=== PATIENT | female | born 1960 | race Caucasian/White ===

== ENCOUNTER → 2017-02-09 | Outpatient (CLI) | payer BC ==
[2017-02-09 06:19] LABS: BASO % 0.5 % (0.0-1.0); EOS # 0.1 K/mm3 (0.0-0.50); EOS % 2.3 % (0.0-3.0); LARGE UNSTAINED CELL # 0.1 K/mm3 (0.0-0.4); LARGE UNSTAINED CELL % 1.9 % (0.0-4.0); LYMPH # 1.7 K/mm3 (1.5-4.5); LYMPH % 28.7 % (24.0-44.0); MEAN CORPUSCULAR VOLUME 90.9 fl (80.0-96.0); MONO # 0.3 K/mm3 (0.0-0.8); NEUTROPHILS # 3.6 K/mm3 (1.8-7.7); NEUTROPHILS % 61.6 % (36.0-66.0); PLATELET COUNT, AUTOMATED 154 k/mm3 (150-450); RED CELL DISTRIBUTION WIDTH 12.8 % (11.5-14.5); WHITE BLOOD COUNT 5.9 K/mm3 (4.0-10.0)
[2017-02-09 06:56] LABS: ALBUMIN 3.6 GM/DL (3.2-5.2); ALBUMIN/GLOBULIN RATIO 0.97 (1.00-1.93); ALKALINE PHOSPHATASE 132 U/L (45-117); ALT/SGPT 21 U/L (12-78); ANION GAP 6 MEQ/L (8-16); AST/SGOT 18 U/L (15-37); BILIRUBIN,TOTAL 0.6 MG/DL (0.2-1.0); BLOOD UREA NITROGEN 18 MG/DL (7-18); CALCIUM LEVEL 9.1 MG/DL (8.5-10.1); CARBON DIOXIDE LEVEL 27 MEQ/L (21-32); CHLORIDE LEVEL 108 MEQ/L (98-107); CHOLESTEROL LEVEL 223 MG/DL (<200); CREATININE FOR GFR 0.83 MG/DL (0.55-1.02); FREE T4 1.07 NG/DL (0.76-1.46); GLOMERULAR FILTRATION RATE > 60.0 (>51); GLUCOSE, FASTING 87 MG/DL (70-105); POTASSIUM SERUM 4.2 MEQ/L (3.5-5.1); SODIUM LEVEL 141 MEQ/L (136-145); TOTAL PROTEIN 7.3 GM/DL (6.4-8.2); TRIGLYCERIDES LEVEL 99 MG/DL (<150)
== END ==
LOC: M LAB 05:48
PROVIDERS: ATTEND Family Medicine
DX: Z13.29 Encounter for screening for other suspected endocrine disorder (principal); Z13.0 Encounter for screening for diseases of the blood and blood-forming organs and certain disorders involving the immune mechanism; Z13.220 Encounter for screening for lipoid disorders

== ENCOUNTER → 2017-02-21 | Outpatient (CLI) | payer BC ==
--- NOTE | 2017-02-21 10:04 | REPMRS ---
Patient History The patient states she has not had a clinical breast exam in over a year. No known family history of cancer. Benign stereotactic core biopsy of the left breast, 2008. Digital Woman Screen Mammo: February 21, 2017 - Exam #: [id number] Bilateral CC and MLO view(s) were taken. Technologist: Addie Wellington, Technologist Prior study comparison: November 14, 2015, digital woman screen mammo performed at [facility]. October 23, 2014, digital woman screen mammo performed at [facility] to [facility]. FINDINGS: The breast tissue is heterogeneously dense. This may lower the sensitivity of mammography. There has been no change in the appearance of the mammogram from the prior studies. There is a moderate amount of residual fibroglandular tissue which is fairly symmetric. There is no interval development of dominant mass, areas of architectural distortion, or clustered microcalcification typical of malignancy. ASSESSMENT: BI-RADS/ACR category 1 mammogram. Negative. Recommendation Routine screening mammogram in 1 year (for women over age 40). This mammogram was interpreted with the aid of an FDA-approved computer-aided dectection system. Electronically Signed By: Pete Epperson MD 02/21/17 [id number]
== END ==
LOC: M WHC 08:29
PROVIDERS: ATTEND Family Medicine
DX: Z12.31 Encounter for screening mammogram for malignant neoplasm of breast (principal)

== ENCOUNTER 2018-02-04 12:14 | Emergency (ER) | payer BC ==
[2018-02-04] MEDS: IBUPROFEN 600 MG TAB PO (13:40)
== END 2018-02-04 13:49 | disposition home or self-care (01) ==
LOC: M ED 12:14
DX: S90.02XA Contusion of left ankle, initial encounter (principal); S90.512A Abrasion, left ankle, initial encounter; V23.5XXA Motorcycle passenger injured in collision with car, pick-up truck or van in traffic accident, initial encounter; Y92.410 Unspecified street and highway as the place of occurrence of the external cause; F17.200 Nicotine dependence, unspecified, uncomplicated; Z79.899 Other long term (current) drug therapy
CPT/HCPCS: 73610

== ENCOUNTER → 2018-02-14 | Outpatient (CLI) | payer BC ==
[2018-02-14 07:09] LABS: BASO % 0.3 % (0.0-1.0); EOS # 0.1 10^3/uL (0.0-0.50); EOS % 1.8 % (0.0-3.0); HEMATOCRIT 43.1 % (36.0-47.0); HEMOGLOBIN 13.8 g/dl (12.0-15.5); IMMATURE GRANULOCYTE % 0.3 % (0-3.0); LYMPH # 1.8 10^3/uL (1.5-4.5); LYMPH % 29.1 % (24.0-44.0); MEAN CORPUSCULAR HEMOGLOBIN 28.8 pg (27.0-33.0); MONO # 0.4 10^3/uL (0.0-0.8); NEUTROPHILS # 3.8 10^3/uL (1.8-7.7); NEUTROPHILS % 61.5 % (36.0-66.0); PLATELET COUNT, AUTOMATED 136 10^3/uL (150-450); RED BLOOD COUNT 4.79 10^6/uL (4.00-5.40); RED CELL DISTRIBUTION WIDTH 14.1 % (11.5-14.5); WHITE BLOOD COUNT 6.2 10^3/uL (4.0-10.0)
[2018-02-14 07:42] LABS: ALBUMIN 3.8 GM/DL (3.2-5.2); ALBUMIN/GLOBULIN RATIO 1.09 (1.00-1.93); ALKALINE PHOSPHATASE 129 U/L (45-117); ALT/SGPT 17 U/L (12-78); ANION GAP 8 MEQ/L (8-16); AST/SGOT 14 U/L (7-37); BILIRUBIN,TOTAL 0.5 MG/DL (0.2-1.0); BLOOD UREA NITROGEN 10 MG/DL (7-18); CALCIUM LEVEL 8.8 MG/DL (8.5-10.1); CARBON DIOXIDE LEVEL 26 MEQ/L (21-32); CHLORIDE LEVEL 110 MEQ/L (98-107); CHOLESTEROL LEVEL 215 MG/DL (<200); CHOLESTEROL RISK RATIO 3.644 (<5); FREE T4 1.17 NG/DL (0.76-1.46); GLOMERULAR FILTRATION RATE > 60.0 (>51); GLUCOSE, FASTING 80 MG/DL (70-100); HDL CHOLESTEROL 59 MG/DL (>40); LDL CHOLESTEROL 133.8 MG/DL (<100); NON-HDL-C 156 MG/DL; POTASSIUM SERUM 3.8 MEQ/L (3.5-5.1); SODIUM LEVEL 144 MEQ/L (136-145); TOTAL PROTEIN 7.3 GM/DL (6.4-8.2); TRIGLYCERIDES LEVEL 111 MG/DL (<150)
== END ==
LOC: M LAB 06:12
DX: Z13.220 Encounter for screening for lipoid disorders (principal); Z13.29 Encounter for screening for other suspected endocrine disorder; Z13.0 Encounter for screening for diseases of the blood and blood-forming organs and certain disorders involving the immune mechanism
CPT/HCPCS: 84443

== ENCOUNTER → 2018-02-14 | Outpatient (CLI) | payer BC | LOC: M WHC 07:07 | DX: Z12.31 Encounter for screening mammogram for malignant neoplasm of breast (principal) | CPT/HCPCS: 77067 ==

== ENCOUNTER → 2018-06-28 | Outpatient (REF) ==
[2018-07-01 16:17] LABS: QuantiFERON-TB Gold Plus Negative (Negative)
== END ==
LOC: M LAB 13:02
DX: Z02.89 Encounter for other administrative examinations (principal)

== ENCOUNTER → 2018-10-03 | Outpatient (CLI) | payer BC ==
[~2018-10-03] MED LIST: ALLE180T33 PO; PERC5TAB12 PO; PRED20TA PO
[2018-10-03 14:35] LABS: BASO % 0.5 % (0.0-1.0); EOS # 0.1 10^3/uL (0.0-0.50); EOS % 1.2 % (0.0-3.0); HEMATOCRIT 36.4 % (36.0-47.0); HEMOGLOBIN 11.8 g/dl (12.0-15.5); LYMPH # 2.3 10^3/uL (1.5-4.5); LYMPH % 27.9 % (24.0-44.0); MEAN CORPUSCULAR HEMOGLOBIN 28.8 pg (27.0-33.0); MEAN CORPUSCULAR HGB CONC 32.4 g/dl (32.0-36.5); MEAN CORPUSCULAR VOLUME 88.8 fl (80.0-96.0); MONO # 0.6 10^3/uL (0.0-0.8); MONO % 6.9 % (0.0-5.0); NEUTROPHILS # 5.3 10^3/uL (1.8-7.7); PLATELET COUNT, AUTOMATED 174 10^3/uL (150-450); WHITE BLOOD COUNT 8.4 10^3/uL (4.0-10.0)
[2018-10-03 15:00] LABS: ERYTHROCYTE SEDIMENTATION RATE 78 mm/hr (0-30)
[2018-10-03 15:10] LABS: ALBUMIN 3.3 GM/DL (3.2-5.2); ALT/SGPT 17 U/L (12-78); BILIRUBIN,TOTAL 0.6 MG/DL (0.2-1.0); BLOOD UREA NITROGEN 11 MG/DL (7-18); CARBON DIOXIDE LEVEL 31 MEQ/L (21-32); CHLORIDE LEVEL 103 MEQ/L (98-107); CREATININE FOR GFR 0.66 MG/DL (0.55-1.30); FREE T4 1.38 NG/DL (0.76-1.46); GLOMERULAR FILTRATION RATE > 60.0 (>51); GLUCOSE, FASTING 95 MG/DL (70-100); SODIUM LEVEL 139 MEQ/L (136-145); THYROID STIMULATING HORMONE 0.388 uIU/ML (0.358-3.740); TOTAL PROTEIN 7.2 GM/DL (6.4-8.2)
[2018-10-03 15:11] LABS: FOLATE 16.7 NG/ML
[2018-10-04 11:14] LABS: VITAMIN B12 LEVEL 414 PG/ML
== END ==
LOC: M WUC 12:38
PROVIDERS: ATTEND Physician Assistant
DX: R20.2 Paresthesia of skin (principal)

== ENCOUNTER → 2018-10-04 | Outpatient (CLI) | payer BC ==
[2018-10-04 18:39] LABS: C REACTIVE PROTEIN QUANTITATIV 3.12 MG/DL (0.00-0.30); RHEUMATOID FACTOR QUANT < 10.0 IU/ML (<15.0)
[2018-10-07 00:07] LABS: ANTINUCLEAR ANTIBODIES DIRECT Negative (Negative); Lyme Disease IgG/IgM Antibodie <0.91 ISR (0.00-0.90); Lyme Disease IgM Ab Quantitati <0.80 index (0.00-0.79)
== END ==
LOC: M SMT 14:41
PROVIDERS: ATTEND Physician Assistant
DX: F45.8 Other somatoform disorders (principal)

== ENCOUNTER 2018-10-09 09:15 | Emergency (ER) | payer BC ==
[~2018-10-09] VITALS: Ht 160 cm; Wt 121.0 kg
[~2018-10-09 09:15] MED LIST changes: -PERC5TAB12 PO; -PRED20TA PO
[2018-10-09] MEDS ORDERED: PRED20TA PO (09:27)
--- NOTE | 2018-10-09 10:00 | REP ---
Clinical: Gait disturbance . Comparison: None . Findings: The ventricles, sulci, and cisterns are normal in position and appearance. Epperson-white differentiation is maintained. No acute intracranial hemorrhage, mass/mass effect, pathology or trauma/injury. No evidence for acute infarction. No extra-axial fluid collection. Calvarium is intact. Paranasal sinuses and mastoid air cells are clear. Impression: Normal noncontrast head CT. No evidence for acute intracranial pathology or trauma/injury. Electronically Signed by Moise Flores MD 10/09/2018 09:52 A
--- NOTE | 2018-10-09 10:15 | REP ---
Chest x-ray: Two views. History: Peripheral edema. No comparison study. Findings: There is a mild to moderate pectus excavatum. The lungs are well inflated and clear. Pleural angles are sharp. Cardiomediastinal silhouette is otherwise unremarkable. Pulmonary vasculature is not increased. EKG monitoring electrodes are seen. No other significant bony abnormality is seen. Impression: Moderate pectus. Otherwise no active disease. Electronically Signed by Duglas Ferris MD 10/09/2018 10:06 A
[2018-10-09 10:45] LABS: BASO % 0.2 % (0.0-1.0); EOS % 0.3 % (0.0-3.0); HEMATOCRIT 35.4 % (36.0-47.0); HEMOGLOBIN 11.5 g/dl (12.0-15.5); LYMPH # 2.5 10^3/uL (1.5-4.5); LYMPH % 25.7 % (24.0-44.0); MEAN CORPUSCULAR HGB CONC 32.5 g/dl (32.0-36.5); MEAN CORPUSCULAR VOLUME 89.2 fl (80.0-96.0); MONO # 0.5 10^3/uL (0.0-0.8); MONO % 5.4 % (0.0-5.0); NEUTROPHILS # 6.4 10^3/uL (1.8-7.7); NEUTROPHILS % 67.5 % (36.0-66.0); PLATELET COUNT, AUTOMATED 233 10^3/uL (150-450); RED BLOOD COUNT 3.97 10^6/uL (4.00-5.40); WHITE BLOOD COUNT 9.5 10^3/uL (4.0-10.0)
[2018-10-09 11:21] LABS: ALT/SGPT 20 U/L (12-78); BILIRUBIN,DIRECT < 0.1 MG/DL (0.0-0.2); BILIRUBIN,TOTAL 0.4 MG/DL (0.2-1.0); BLOOD UREA NITROGEN 18 MG/DL (7-18); CALCIUM LEVEL 8.5 MG/DL (8.5-10.1); CARBON DIOXIDE LEVEL 23 MEQ/L (21-32); CHLORIDE LEVEL 110 MEQ/L (98-107); CK-MB VALUE MASS < 1.0 NG/ML (<3.6); CPK CREATINE PHOSPHOKINASE 99 U/L (26-192); CREATININE FOR GFR 0.64 MG/DL (0.55-1.30); FREE T4 1.18 NG/DL (0.76-1.46); GLOMERULAR FILTRATION RATE > 60.0 (>51); GLUCOSE, FASTING 92 MG/DL (70-100); MAGNESIUM LEVEL 1.9 MG/DL (1.8-2.4); MB/CK RELATIVE INDEX 1.01 (< OR =4); PHOSPHORUS LEVEL 2.8 MG/DL (2.5-4.9); POTASSIUM SERUM 4.2 MEQ/L (3.5-5.1); SODIUM LEVEL 143 MEQ/L (136-145); THYROID STIMULATING HORMONE 0.754 uIU/ML (0.358-3.740); TOTAL PROTEIN 6.5 GM/DL (6.4-8.2); TROPONIN I < 0.02 NG/ML (< 0.10)
[2018-10-09] MEDS ORDERED: PERCOCET 5MG/325MG TAB PO ONE (12:45)
[2018-10-09 13:38] LABS: VENOUS BASE EXCESS 2.3 (-2.0-2.0); VENOUS HCO3 27.6 MEQ/L (23.0-27.0); VENOUS O2 SATURATION 93.2 % (60.0-80.0); VENOUS PARTIAL PRESSURE CO2 45.2 mmHg (38.0-50.0); VENOUS PH 7.403 UNITS (7.330-7.430); VENOUS STANDARD HCO3 26.5 MEQ/L; VENOUS TOTAL CO2 28.9 MEQ/L (24.0-28.0)
[2018-10-09 14:10] LABS: C REACTIVE PROTEIN QUANTITATIV < 0.30 MG/DL (0.00-0.30); MAGNESIUM LEVEL 2.1 MG/DL (1.8-2.4)
[2018-10-09 14:16] LABS: MONO REFLEX EBV COMP NEGATIVE (NEGATIVE)
[2018-10-09] MEDS ORDERED: PERC5TAB12 PO (14:51)
[2018-10-09 15:10] VITALS: BP 138/66
--- NOTE | 2018-10-10 20:57 | ECGEPIP ---
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
[2018-10-11 00:11] LABS: EBV AB TO NUCLEAR ANTIGEN >600.0 U/mL (0.0-17.9); EBV VIRAL CAPSID AG IgG >600.0 U/mL (0.0-17.9); EBV VIRAL CAPSID AG IgM <36.0 U/mL (0.0-35.9)
== END 2018-10-09 15:36 | disposition home or self-care (01) ==
LOC: M ED 09:15
DX: M79.10 Myalgia, unspecified site (principal); R60.9 Edema, unspecified; R00.1 Bradycardia, unspecified; M95.4 Acquired deformity of chest and rib

== ENCOUNTER → 2018-10-20 | Outpatient (REF) | payer BC ==
[~2018-10-20] MED LIST changes: +PERC5TAB12 PO; +PRED20TA PO
== END ==
LOC: M LAB REF 15:37
PROVIDERS: ATTEND Physician Assistant
DX: R53.83 Other fatigue (principal)

== ENCOUNTER → 2018-10-20 | Outpatient (CLI) | payer BC ==
[2018-10-20 14:10] LABS: BASO # 0.1 10^3/uL (0.0-0.2); BASO % 0.6 % (0.0-1.0); EOS # 0.4 10^3/uL (0.0-0.50); EOS % 4.2 % (0.0-3.0); HEMATOCRIT 43.5 % (36.0-47.0); HEMOGLOBIN 13.5 g/dl (12.0-15.5); LYMPH # 1.5 10^3/uL (1.5-4.5); LYMPH % 17.5 % (24.0-44.0); MEAN CORPUSCULAR HEMOGLOBIN 28.4 pg (27.0-33.0); MEAN CORPUSCULAR VOLUME 91.6 fl (80.0-96.0); MONO # 0.5 10^3/uL (0.0-0.8); MONO % 5.7 % (0.0-5.0); NEUTROPHILS # 6.1 10^3/uL (1.8-7.7); NEUTROPHILS % 71.5 % (36.0-66.0); PLATELET COUNT, AUTOMATED 134 10^3/uL (150-450); RED BLOOD COUNT 4.75 10^6/uL (4.00-5.40); WHITE BLOOD COUNT 8.5 10^3/uL (4.0-10.0)
[2018-10-20 14:20] LABS: C REACTIVE PROTEIN QUANTITATIV 0.74 MG/DL (0.00-0.30); CPK CREATINE PHOSPHOKINASE 54 U/L (26-192); FERRITIN 289 NG/ML (8-252); IRON (FE) 93 UG/DL (50-170); PERCENT SATURATION 33.1 % (13.2-45.0); RHEUMATOID FACTOR QUANT < 10.0 IU/ML (<15.0); TOTAL IRON BINDING CAPACITY 281 UG/DL (250-450)
[2018-10-20 15:15] LABS: FOLATE 12.1 NG/ML
[2018-10-20 15:35] LABS: ERYTHROCYTE SEDIMENTATION RATE 34 mm/hr (0-30)
[2018-10-21 15:39] LABS: ANTINUCLEAR ANTIBODIES DIRECT Negative (Negative)
[2018-10-23 10:41] LABS: VITAMIN B12 LEVEL 387 PG/ML (232-1245)
== END ==
LOC: M SMT 09:18
PROVIDERS: ATTEND Physician Assistant
DX: R53.83 Other fatigue (principal)

== ENCOUNTER 2018-11-03 14:55 | Inpatient (IN) | payer BC ==
[2018-11-03] VITALS (11 sets, daily range): BP systolic 119–148; BP diastolic 56–68
[~2018-11-03] VITALS: Ht 160 cm; Wt 51.9 kg
[2018-11-03 15:28] LABS: BASO % 0.4 % (0.0-1.0); EOS # 0.1 10^3/uL (0.0-0.50); EOS % 1.8 % (0.0-3.0); HEMATOCRIT 37.7 % (36.0-47.0); HEMOGLOBIN 12.5 g/dl (12.0-15.5); LYMPH # 2.2 10^3/uL (1.5-4.5); LYMPH % 30.1 % (24.0-44.0); MEAN CORPUSCULAR HEMOGLOBIN 29.2 pg (27.0-33.0); MEAN CORPUSCULAR HGB CONC 33.2 g/dl (32.0-36.5); MEAN CORPUSCULAR VOLUME 88.1 fl (80.0-96.0); MONO # 0.4 10^3/uL (0.0-0.8); MONO % 5.9 % (0.0-5.0); NEUTROPHILS # 4.4 10^3/uL (1.8-7.7); NEUTROPHILS % 61.7 % (36.0-66.0); PLATELET COUNT, AUTOMATED 196 10^3/uL (150-450); RED BLOOD COUNT 4.28 10^6/uL (4.00-5.40); WHITE BLOOD COUNT 7.1 10^3/uL (4.0-10.0)
[2018-11-03 15:42] LABS: PROTHROMBIN TIME 13.3 SECONDS (12.1-14.4)
[2018-11-03 15:43] LABS: PARTIAL THROMBOPLASTIN TIME 29.1 SECONDS (25.4-37.6)
[2018-11-03] MEDS ORDERED: IMMUNE GLOBULIN 10% 30 GM in APPROPRIATE DILUENT 1 EA IV ONE (15:45)
[2018-11-03 16:05] LABS: BLOOD UREA NITROGEN 12 MG/DL (7-18); CALCIUM LEVEL 9.8 MG/DL (8.5-10.1); CARBON DIOXIDE LEVEL 26 MEQ/L (21-32); CHLORIDE LEVEL 106 MEQ/L (98-107); CPK CREATINE PHOSPHOKINASE 100 U/L (26-192); CREATININE FOR GFR 0.65 MG/DL (0.55-1.30); GLOMERULAR FILTRATION RATE > 60.0 (>51); GLUCOSE, FASTING 97 MG/DL (70-100); POTASSIUM SERUM 4.2 MEQ/L (3.5-5.1); SODIUM LEVEL 140 MEQ/L (136-145); TROPONIN I < 0.02 NG/ML (< 0.10)
[2018-11-03] MEDS ORDERED: IMMUNE GLOBULIN 10% 10 GM in APPROPRIATE DILUENT 1 EA IV ONE (17:00)
[2018-11-03] MEDS ORDERED: BISACODYL 5 MG TAB PO PRN (17:15)
[2018-11-03] MEDS ORDERED: ONDANSETRON 4MG/2ML VIAL (J2405) IV PRN (17:15)
--- NOTE | 2018-11-03 17:46 | ECGEPIP ---
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
[2018-11-03] MEDS ORDERED: IMMUNE GLOBULIN 10% 20 GM in APPROPRIATE DILUENT 1 EA IV ONE (18:00)
--- NOTE | 2018-11-03 18:15 | HPE ---
DATE OF ADMISSION: 11/03/2018 My preceptor for this encounter is Dr. Ma. PRIMARY CARE PROVIDER: Dr. Cristy Alvarez CHIEF COMPLAINT: Progressive weakness with paresthesias and anesthesias. HISTORY OF PRESENT ILLNESS: Shari is a 58-year-old female who was sent over by Dr. Bar from the neurology office for Guillain-[place] syndrome. She states that on September 26, 2018 she started having flu-like symptoms. These lasted for 5-6 days. After they resolved, she went to work and at the end of the shift felt like she could not walk. She woke up the next day and her hands and feet were numb. This has progressively gotten worse, ascending up to her thighs today. She states like she feels like she cannot walk without holding onto something, she feels progressively weaker, especially in the lower extremities and even her activities of daily living are starting to cause her to become winded. She has also experienced some nausea and a decreased appetite. She has lost about 7 pounds since this has begun. She denies any shortness of breath or wheezing but also states that she has been feeling a little constipated. She denies any fevers or chills. REVIEW OF SYSTEMS: Constitutional: Patient admits to a 7 pound weight loss, as well as increasing fatigue and weakness. She denies any fevers or chills. HEENT: Denies headache, double vision, runny nose, stuffy nose, epistaxis, tinnitus, sore throat or odynophagia. Cardiovascular: Denies any chest pain, paroxysmal nocturnal dyspnea (PND), orthopnea, edema or palpitations. Respiratory: Denies cough, sputum production, wheezing, hemoptysis. Positive for feeling a little bit winded but no overt shortness of breath Gastrointestinal: Denies any difficulty swallowing, vomiting or diarrhea, obstipation, hematemesis, hematochezia, melena or tenesmus. She does admit to some nausea and anorexia with a weight loss of 7 pounds. Genitourinary: Denies incontinence, dysuria, hematuria, nocturia, polyuria. Musculoskeletal: Positive for progressive weakness as described above. Denies any joint swelling, crepitus or stiffness. Integumentary: Denies any new rashes, lesions, pruritus, striae or wounds. Neurologic: Denies any changes to sight/smell/hearing/taste, history of seizures, headaches or speech problems. Positive for anesthesias, paresthesias and limb weakness. Psychiatric: Denies any anxiety or depression. Denies any paranoia, anhedonia or episodes of otoniel. Endocrine: Denies any mood swings, diarrhea, palpitations, tremors, visual disturbances, constipation, dry skin or polydipsia. Hematology: Denies any anemia, purpura, petechiae or easy bruising/bleeding. Lymphatic: Denies any new lumps or bumps anywhere. PAST MEDICAL HISTORY: History of cyst on the left ovary, left kidney cyst and atrophy with renal artery stenosis. CURRENT MEDICATIONS: Multivitamin, calcium plus vitamin D, Motrin as needed, aspirin 81 mg daily. PAST SURGICAL HISTORY: Tubal ligation in 1984, laparoscopic-assisted vaginal hysterectomy 2005, benign left breast biopsy in 2008, laser eye surgery as a child, colonoscopy in 2011 which was clean. FAMILY HISTORY: Father was at 63 years old from liver cancer. Mother 3 years ago from heart failure. She also had hypertension and hypothyroidism. She had a sister that fracture her legs and from a blood clot at age 39. She has two sons and one daughter who are healthy. 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 She is a former smoker, she quit about 2 months ago and has a 15 pack-year smoking history. She denies recreational drug use and drinks an occasional glass of wine about one or two times per month. ALLERGIES: None. Vital signs: Temperature 98.0, pulse 69 and regular, respiratory rate 17, blood pressure 143/67, pulse oximetry is 98% on room air. General: Middle-aged female who is awake, alert and oriented sitting in the emergency room (ER) in no acute distress. She is pleasant and cooperative. HEENT: Atraumatic, normocephalic. Pupils are equal, round and reactive to light. Extraocular eye movements are intact. Mucous membranes are moist. Neck: No lymphadenopathy is appreciated. Neck is supple and nontender. There is no pain upon flexion of the neck. Heart: Regular rate and rhythm. No murmurs, gallops or rubs. Lungs: Clear to auscultation bilaterally. No wheezes, rhonchi or rales. Back: Straight. No costovertebral angle (CVA) tenderness bilaterally. Abdomen: Normoactive bowel sounds. No pain to palpation in all four quadrants. Extremities: No clubbing, cyanosis or edema bilaterally. Neurologic: Patient has 5/5 muscle strength in all four extremities. Sensation is intact; however, the patient has difficulty distinguishing between sharp and dull. She states that the paresthesias and anesthesias make it feel "weird." She has a positive Babinski sign bilaterally. The patient was found to have areflexia in all four extremities. Cranial nerves II-XII were grossly intact. Skin: No rashes, lesions or areas of erythema were noted. LABORATORY DATA: CBC: WBC 7.1, hemoglobin 12.5, hematocrit 37.7 platelets 196. Differential: 62% neutrophils, 30% lymphocytes, 6% monocytes, 2% eosinophils. Chemistry: Sodium 140, potassium 4.2, chloride 106, carbon dioxide 26, BUN 12, creatinine 0.65, fasting glucose 97, calcium 9.8, total creatinine kinase 100, CK-MB 2.0, troponin less than 0.02. Coagulation: PT 13.3, INR 1.00, APTT 29.1. Blood type: O negative. EMERGENCY ROOM COURSE: The patient was given 30 grams of IVIG in the ER. ASSESSMENT: This is a 58-year-old female who is being admitted for Guillain-[place]. Dr. Bar has been consulted and his input is greatly appreciated. PLAN: 1. Guillain-[place]. The patient will be receiving 5 days of IVIG 30 grams daily. She will have vital capacity measured every 4 hours. We will put in a consultation for her to get a lumbar puncture on Tuesday. 2. Deep vein thrombosis (DVT) prophylaxis: Lovenox, thromboembolism deterrents (TEDs) and sequentials DISPOSITION: The patient will be on Dr. Vasques's service starting at 0700 hours on 11/04/2018. My preceptor for this encounter is Dr. Ma. My faculty preceptor for this patient encounter was physically present during the encounter and was fully available. All aspects of the patient interview, examination, medical decision making process, and medical care plan development were reviewed and approved by the faculty preceptor. The faculty preceptor is aware and concurs with the plan as stated in the body of this note and will attest to such by his/her cosignature. I have both independently examined this patient as well as reviewed the H&P. I have discussed in detail with the resident the findings and plan of treatment as documented in the resident's note- Francesca Ma MD [facility]
[2018-11-03] MEDS: PANTOPRAZOLE 40MG INJ (PROTONIX) (C9113) IV SCH (18:33)
[2018-11-03] MEDS ORDERED: DILUENT IV ONE (19:00)
[2018-11-03] MEDS ORDERED: IMMUNE GLOBULIN IV ONE (19:00)
[2018-11-03] MEDS: ACETAMINOPHEN TAB 650MG DOSE (2X325MG) PO PRN (23:42)
[2018-11-04] VITALS (13 sets, daily range): BP systolic 110–132; BP diastolic 53–72
[2018-11-04 08:20] LABS: HEMATOCRIT 34.6 % (36.0-47.0); HEMOGLOBIN 11.3 g/dl (12.0-15.5); MEAN CORPUSCULAR HEMOGLOBIN 28.9 pg (27.0-33.0); MEAN CORPUSCULAR HGB CONC 32.7 g/dl (32.0-36.5); MEAN CORPUSCULAR VOLUME 88.5 fl (80.0-96.0); PLATELET COUNT, AUTOMATED 159 10^3/uL (150-450); RED BLOOD COUNT 3.91 10^6/uL (4.00-5.40); WHITE BLOOD COUNT 3.7 10^3/uL (4.0-10.0)
[2018-11-04 08:33] LABS: BLOOD UREA NITROGEN 17 MG/DL (7-18); CALCIUM LEVEL 8.7 MG/DL (8.5-10.1); CARBON DIOXIDE LEVEL 27 MEQ/L (21-32); CHLORIDE LEVEL 106 MEQ/L (98-107); CREATININE FOR GFR 0.67 MG/DL (0.55-1.30); GLOMERULAR FILTRATION RATE > 60.0 (>51); GLUCOSE, FASTING 105 MG/DL (70-100); POTASSIUM SERUM 3.7 MEQ/L (3.5-5.1); SODIUM LEVEL 140 MEQ/L (136-145)
[2018-11-04] MEDS ORDERED: DILUENT IV SCH (09:00)
[2018-11-04] MEDS ORDERED: IMMUNE GLOBULIN IV SCH (09:00)
[2018-11-04] MEDS: ENOXAPARIN 40 MG/0.4 ML SYRINGE (J1650) SC SCH (09:07)
[2018-11-04] MEDS: IMMUNE GLOBULIN 10% 10 GM in APPROPRIATE DILUENT 1 EA IV SCH (09:08)
[2018-11-04] MEDS: IMMUNE GLOBULIN 10% 20 GM in APPROPRIATE DILUENT 1 EA IV SCH (09:09)
--- NOTE | 2018-11-04 10:38 | IPNPDOC ---
Text Note Date of Service The patient was seen on 11/04/18. NOTE Subjective: Patient is seen at bedside. She states that she got a good night's sleep last night. She states that she does not feel weaker, but she does not feel stronger either; the weakness will get progressively worse throughout the day. She continues to have paresthesias and anesthesias up to her chest. She denies any fevers, chills, nausea, vomiting, shortness of breath, diarrhea, or constipation Objective: Vital signs: See below General: Middle-aged female who is awake, alert. She is pleasant and cooperative, in no acute distress HEENT: Atraumatic, normocephalic. Pupils are equal, round and reactive to light. Extraocular eye movements are intact. Mucous membranes are moist. Neck: No lymphadenopathy is appreciated. Neck is supple and nontender. Heart: Regular rate and rhythm. No murmurs, gallops or rubs. Lungs: Clear to auscultation bilaterally. No wheezes, rhonchi or rales. Abdomen: Normoactive bowel sounds. No pain to palpation in all four quadrants. Extremities: No clubbing, cyanosis or edema bilaterally. Neurologic: Patient has 5/5 muscle strength in all four extremities. Sensation is intact; however, the patient still has difficulty distinguishing between sharp and dull. She continues to have a positive Babinski sign bilaterally. The patient was found to have areflexia in all four extremities. Cranial nerves II- XII were grossly intact. LABORATORY DATA: see below ASSESSMENT: This is a 58-year-old female who is being admitted for Guillain- [place]. PLAN: 1. Guillain-[place]. The patient will be receiving 5 days of IVIG 30 grams daily, she is on Day #2. She will have vital capacity measured every 4 hours. We will put in a consultation for her to get a lumbar puncture on Tuesday. Dr. Bar is following, we greatly appreciated his input. Lumbar puncture and CFS studies have been ordered for Tuesday. We will have her work with physical and occupational therapy. 2. Deep vein thrombosis (DVT) prophylaxis: Lovenox, thromboembolism deterrents (TEDs) and sequentials DISPOSITION: Pending clinical improvement VS,Fishbone, I+O VS, Fishbone, I+O Laboratory Tests 11/03/18 15:23 Red Blood Count 4.28, Mean Corpuscular Volume 88.1, Mean Corpuscular Hemoglobin 29.2, Mean Corpuscular Hemoglobin Concent 33.2, Red Cell Distribution Width 13.8, Neutrophils (%) (Auto) 61.7, Lymphocytes (%) (Auto) 30.1, Monocytes (%) (Auto) 5.9 H, Eosinophils (%) (Auto) 1.8, Basophils (%) (Auto) 0.4, Neutrophils # (Auto) 4.4, Lymphocytes # (Auto) 2.2, Monocytes # (Auto) 0.4, Eosinophils # (Auto) 0.1, Basophils # (Auto) 0.0, Calcium Level 9.8, Total Creatine Kinase 100 11/04/18 07:56 Red Blood Count 3.91 L, Mean Corpuscular Volume 88.5, Mean Corpuscular Hemoglobin 28.9, Mean Corpuscular Hemoglobin Concent 32.7, Red Cell Distribution Width 14.0, Calcium Level 8.7 Vital Signs Date Time Temp Pulse Resp B/P (MAP) Pulse Ox O2 Delivery O2 Flow Rate FiO2 11/04/18 09:10 98.0 95 18 118/72 (87) 97 11/03/18 16:30 Room Air I&O- Last 24 Hours up to 6 AM 11/04/18 06:00 Intake Total 180 ml Balance 180 ml GME ATTESTATION GME ATTESTATION My faculty preceptor for this patient encounter was physically present during the encounter and was fully available. All aspects of the patient interview, examination, medical decision making process, and medical care plan development were reviewed and approved by the faculty preceptor. The faculty preceptor is aware and concurs with the plan as stated in the body of this note and will attest to such by his/her cosignature. TALYA MARI DO Nov 04, 2018 10:38
--- NOTE | 2018-11-04 15:26 | CR ---
DATE OF CONSULTATION: 11/04/2018 REFERRING PHYSICIAN: Dr. 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 Suspect [place] syndrome. HISTORY OF PRESENT ILLNESS: Shari Prajapati is a 58-year-old woman who developed flu-like symptoms in mid September 2018. These symptoms lasted for a week. They improved and she went to work but could not end her shift as she felt weakness in her arms and legs with imbalance. She woke up the next day and had numbness, tingling of her arms and legs. She came to [facility] emergency department on 10/09/2018. She was discharged home from the emergency department. She was seen at our office last week for progressive worsening of her symptoms. She also started feeling numbness, tingling and pain in her arms and legs which has worsened. She has difficulty sleeping at night. She has difficulty walking unassisted. She has to hold onto things around her in order to walk. Her MRI scan of the cervical and thoracic spine with and without contrast showed mild cervical and thoracic spondylosis. 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 Her spinal tap is scheduled for Tuesday. She has been started on intravenous immunoglobulin 20 grams IV daily for 5 days. When I saw her today in the hospital, she is starting to feel better. She was able to sleep better last night. She denies any shortness of breath, dysphagia, dysarthria, diplopia or urinary incontinence. She has intermittent neck and back pain. PAST MEDICAL HISTORY: Left ovarian cyst. Left kidney cyst atrophy and renal artery stenosis. HOME MEDICATIONS: - aspirin 81 mg - calcium with vitamin D - multivitamin - ibuprofen PAST SURGICAL HISTORY: Tubal ligation. Hysterectomy. Benign left breast biopsy. 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 She is a former smoker. She quit smoking 2 months ago. She denies alcohol or illicit drugs. ALLERGIES: None. REVIEW OF SYSTEMS: All systems were reviewed and found be noncontributory except as mentioned in the history of present illness. PHYSICAL EXAMINATION: Temperature 98, pulse 69, respiratory 17, blood pressure 143/67. Heart regular rate and rhythm. Lungs clear to auscultation. Abdomen soft, nontender, nondistended. No pedal edema. No musculoskeletal abnormalities. No rash. No signs of meningeal irritation. No dysmetria. The patient is awake, alert, oriented to place, person and time. Normal speech comprehension and repetition. Extraocular muscles are intact. No facial weakness. Tongue and uvula midline. 4+/5 strength in bilateral deltoids and ileus psoas. The rest of the strength is 5/5. She has decreased cold pinprick vibration sensation in her feet. Deep tendon reflexes are absent throughout. Plantars are downgoing. She has withdrawal response on plantar testing. DIAGNOSTIC STUDIES: Her CBC, metabolic profile are within normal limits. ASSESSMENT: 1. 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 2. 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 3. Numbness, tingling pain of all four extremities, imbalance and mild weakness related to above. PLAN: 1. Intravenous immunoglobulin 20 grams daily intravenously for 5 days. 2. Trazodone 50 mg by mouth nightly. 3. Physical and occupational therapy. 4. Follow with our office in 2 - 4 weeks after hospital discharge.
[2018-11-04] MEDS: PANTOPRAZOLE 40MG INJ (PROTONIX) (C9113) IV SCH (17:21)
[2018-11-04] MEDS: traZODone 50 MG TAB PO SCH (22:40)
[2018-11-04] MEDS: ACETAMINOPHEN TAB 650MG DOSE (2X325MG) PO PRN (22:40)
[2018-11-05] VITALS (13 sets, daily range): BP systolic 113–144; BP diastolic 58–73
[2018-11-05 06:54] LABS: HEMATOCRIT 32.6 % (36.0-47.0); HEMOGLOBIN 10.6 g/dl (12.0-15.5); MEAN CORPUSCULAR HEMOGLOBIN 28.7 pg (27.0-33.0); MEAN CORPUSCULAR HGB CONC 32.5 g/dl (32.0-36.5); MEAN CORPUSCULAR VOLUME 88.3 fl (80.0-96.0); PLATELET COUNT, AUTOMATED 130 10^3/uL (150-450); RED BLOOD COUNT 3.69 10^6/uL (4.00-5.40); WHITE BLOOD COUNT 2.4 10^3/uL (4.0-10.0)
[2018-11-05 07:20] LABS: BLOOD UREA NITROGEN 17 MG/DL (7-18); CALCIUM LEVEL 8.6 MG/DL (8.5-10.1); CARBON DIOXIDE LEVEL 27 MEQ/L (21-32); CHLORIDE LEVEL 108 MEQ/L (98-107); CREATININE FOR GFR 0.65 MG/DL (0.55-1.30); GLOMERULAR FILTRATION RATE > 60.0 (>51); GLUCOSE, FASTING 92 MG/DL (70-100); POTASSIUM SERUM 3.6 MEQ/L (3.5-5.1); SODIUM LEVEL 142 MEQ/L (136-145)
--- NOTE | 2018-11-05 08:49 | IPNPDOC ---
Date Seen The patient was seen on 11/05/18. Progress Note Subjective:patient tells me that she is feeling well today she has noticed some paresthesias in her hands and her feet but otherwise no shortness of breath no further weakness or other changes in her sensation Objective: Vital signs: See below General: Pleasant Middle-aged female who is awake, alert. no acute distress HEENT: Cranial nerves II through XII grossly intact Neck: No elevation CVP Heart: S1-S2 regular Lungs: Clear to auscultation bilaterally. No wheezes, rhonchi or rales. Abdomen: Normoactive bowel sounds. No pain to palpation in all four quadrants. Extremities: No clubbing, cyanosis or edema bilaterally. Neurologic: Patient has 5/5 muscle strength in all four extremities. 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 PLAN: 1. 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 Today is day 2 of 5 of IVIG 30 grams daily. She will continue to have vital capacity measured she has not had any significant change and as such I will set of to every 8 hours. Interventional radiology consultation for her to get a lumbar puncture on Tuesday. Dr. Bar is following, we greatly appreciated his input. CFS studies have been ordered for Tuesday. We will have her work with physical and occupational therapy. Her new paresthesias may be evidence of positive proximal stenosis 2. Deep vein thrombosis (DVT) prophylaxis: Lovenox, thromboembolism deterrents (TEDs) and sequentials DISPOSITION: Pending LP and completion of her IVIG course his status appears to be quite stable VS, I&O, 24H, [facility] Vital Signs/I&O Vital Signs Date Time Temp Pulse Resp B/P (MAP) Pulse Ox O2 Delivery O2 Flow Rate FiO2 11/05/18 05:25 98.1 86 20 131/60 (83) 97 11/03/18 16:30 Room Air I&O- Last 24 Hours up to 6 AM 11/05/18 06:00 Intake Total 760 ml Balance 760 ml Laboratory Data 24H LABS Laboratory Tests 2 11/05/18 06:17: Nucleated Red Blood Cells % (auto) 0.0, Anion Gap 7L, Glomerular Filtration Rate > 60.0, Blood Urea Nitrogen 17, Creatinine 0.65, Sodium Level 142, Potassium Level 3.6, Chloride Level 108H, Carbon Dioxide Level 27, Calcium Level 8.6 CBC/BMP Laboratory Tests 11/05/18 06:17 Red Blood Count 3.69 L, Mean Corpuscular Volume 88.3, Mean Corpuscular Hemoglobin 28.7, Mean Corpuscular Hemoglobin Concent 32.5, Red Cell Distribution Width 13.7, Calcium Level 8.6 ANGLE MCDONALD MD Nov 05, 2018 08:49
[2018-11-05] MEDS: ENOXAPARIN 40 MG/0.4 ML SYRINGE (J1650) SC SCH (09:00)
[2018-11-05] MEDS: IMMUNE GLOBULIN 10% 10 GM in APPROPRIATE DILUENT 1 EA IV SCH (09:30)
[2018-11-05] MEDS: GABAPENTIN 100 MG CAP PO SCH ×3 (11:35→21:39)
[2018-11-05] MEDS: IMMUNE GLOBULIN 10% 20 GM in APPROPRIATE DILUENT 1 EA IV SCH (12:11)
[2018-11-05] MEDS: ACETAMINOPHEN TAB 650MG DOSE (2X325MG) PO PRN (14:35)
[2018-11-05] MEDS: PANTOPRAZOLE 40MG INJ (PROTONIX) (C9113) IV SCH (17:53)
[2018-11-05] MEDS: traZODone 50 MG TAB PO SCH (21:39)
[2018-11-06] VITALS (10 sets, daily range): BP systolic 123–148; BP diastolic 59–71
--- NOTE | 2018-11-06 07:09 | IPNPDOC ---
Text Note Date of Service The patient was seen on 11/06/18. NOTE Subjective: Patient is seen at bedside. She offers no new complaints. She feels a little stronger this morning, but continues to have paresthesias and anesthesias. She denies trouble breathing or dysphasias. Objective: Vital signs: See below General: Pleasant Middle-aged female who is awake, alert. No acute distress HEENT: Mucous membrane moist, EOMI, PERRLA Neck: No elevation JVD Heart: Regular rate and rhythm, no murmurs/gallops/rubs Lungs: Clear to auscultation bilaterally. No wheezes, rhonchi or rales. Abdomen: Normoactive bowel sounds. No pain to palpation in all four quadrants. Extremities: No clubbing, cyanosis or edema bilaterally. Neurologic: CN II-XII grossly intact. Patient has 5/5 muscle strength in all four extremities. 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 PLAN: 1. 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 Today is da y 4 of 5 of IVIG 30 grams daily. She will continue to have vital capacity measured every 8 hours, she has not had any significant change. Interventional radiology consultation for her to get a lumbar puncture on today. Dr. Bar is following, we greatly appreciated his input. CFS studies have been ordered for today. We will have her work with physical and occupational therapy. Her new paresthesias may be evidence of positive proximal stenosis. 2. Deep vein thrombosis (DVT) prophylaxis: Lovenox, thromboembolism deterrents (TEDs) and sequentials DISPOSITION: Pending LP and completion of her IVIG course. Her status appears to be quite stable, potential discharge in the next 24-48 hours VS,Fishbone, I+O VS, Fishbone, I+O Vital Signs Date Time Temp Pulse Resp B/P (MAP) Pulse Ox O2 Delivery O2 Flow Rate FiO2 11/06/18 06:00 98.2 100 18 140/71 (94) 98 11/03/18 16:30 Room Air I&O- Last 24 Hours up to 6 AM 11/06/18 06:00 Intake Total 1980 ml Balance 1980 ml GME ATTESTATION GME ATTESTATION My faculty preceptor for this patient encounter was physically present during the encounter and was fully available. All aspects of the patient interview, examination, medical decision making process, and medical care plan development were reviewed and approved by the faculty preceptor. The faculty preceptor is aware and concurs with the plan as stated in the body of this note and will at test to such by his/her cosignature. TALYA MARI DO Nov 06, 2018 07:09
[2018-11-06] MEDS: ENOXAPARIN 40 MG/0.4 ML SYRINGE (J1650) SC SCH (07:55)
[2018-11-06 08:50] LABS: HEMATOCRIT 35.8 % (36.0-47.0); HEMOGLOBIN 11.6 g/dl (12.0-15.5); MEAN CORPUSCULAR HEMOGLOBIN 29.4 pg (27.0-33.0); MEAN CORPUSCULAR HGB CONC 32.4 g/dl (32.0-36.5); MEAN CORPUSCULAR VOLUME 90.6 fl (80.0-96.0); PLATELET COUNT, AUTOMATED 123 10^3/uL (150-450); RED BLOOD COUNT 3.95 10^6/uL (4.00-5.40); WHITE BLOOD COUNT 3.1 10^3/uL (4.0-10.0)
[2018-11-06 09:09] LABS: BLOOD UREA NITROGEN 12 MG/DL (7-18); CALCIUM LEVEL 8.9 MG/DL (8.5-10.1); CARBON DIOXIDE LEVEL 25 MEQ/L (21-32); CHLORIDE LEVEL 106 MEQ/L (98-107); CREATININE FOR GFR 0.79 MG/DL (0.55-1.30); GLOMERULAR FILTRATION RATE > 60.0 (>51); GLUCOSE, FASTING 110 MG/DL (70-100); POTASSIUM SERUM 3.8 MEQ/L (3.5-5.1); SODIUM LEVEL 138 MEQ/L (136-145)
[2018-11-06] MEDS: GABAPENTIN 100 MG CAP PO SCH ×3 (09:15→21:40)
[2018-11-06] MEDS: IMMUNE GLOBULIN 10% 20 GM in APPROPRIATE DILUENT 1 EA IV SCH (09:16)
[2018-11-06] MEDS: IMMUNE GLOBULIN 10% 10 GM in APPROPRIATE DILUENT 1 EA IV SCH (09:17)
[2018-11-06 12:06] LABS: APPEARANCE, CSF CLEAR (CLEAR); COLOR, CSF COLORLESS (COLORLESS); CSF TUBE# CELL CNT TUBE 1
[2018-11-06 12:07] LABS: CSF TUBE# GLU TUBE 2; CSF TUBE# TP TUBE 2; GLUCOSE CSF 60 MG/DL (40-75); TOTAL PROTEIN,CSF 122 MG/DL (15-45)
[2018-11-06] MEDS: ACETAMINOPHEN TAB 650MG DOSE (2X325MG) PO PRN (16:14)
--- NOTE | 2018-11-06 16:51 | REP ---
Fluoroscopically guided lumbar puncture. History: Weakness. Rule out Guillain [place]' syndrome. Procedure: The patient was interviewed and informed consent was obtained. The patient was placed prone on the fluoroscopy table. Initial fluoroscopy is utilized to marked dorsal skin in the midline at the L2-3 interspinous level. The patient safety time-out was articulated and agreed to. The dorsal paraspinal region was prepped and draped in the usual fashion. Utilizing intermittent fluoroscopy, a 25 gauge spinal needle was advanced into the thecal sac at the L2-3 interspinal level without technical difficulty. Clear freely flowing cerebrospinal fluid was retrieved on the first pass and a total of 10 ml was collected and submitted for laboratory analysis. The patient tolerated the procedure well. Impression: Fluoroscopically guided lumbar puncture. Fluoroscopy time for this procedure was 0.1 minutes. Electronically Signed by Duglas Ferris MD 11/06/2018 05:44 P
[2018-11-06] MEDS: PANTOPRAZOLE 40MG INJ (PROTONIX) (C9113) IV SCH (17:29)
[2018-11-06] MEDS: traZODone 50 MG TAB PO SCH (21:40)
[2018-11-07] VITALS (10 sets, daily range): BP systolic 113–153; BP diastolic 52–83
[2018-11-07 06:33] LABS: HEMATOCRIT 34.1 % (36.0-47.0); HEMOGLOBIN 10.9 g/dl (12.0-15.5); MEAN CORPUSCULAR HEMOGLOBIN 28.9 pg (27.0-33.0); MEAN CORPUSCULAR VOLUME 90.5 fl (80.0-96.0); PLATELET COUNT, AUTOMATED 111 10^3/uL (150-450); RED BLOOD COUNT 3.77 10^6/uL (4.00-5.40); WHITE BLOOD COUNT 2.9 10^3/uL (4.0-10.0)
[2018-11-07 07:03] LABS: BLOOD UREA NITROGEN 15 MG/DL (7-18); CALCIUM LEVEL 8.6 MG/DL (8.5-10.1); CARBON DIOXIDE LEVEL 25 MEQ/L (21-32); CHLORIDE LEVEL 108 MEQ/L (98-107); GLOMERULAR FILTRATION RATE > 60.0 (>51); GLUCOSE, FASTING 87 MG/DL (70-100); POTASSIUM SERUM 3.7 MEQ/L (3.5-5.1); SODIUM LEVEL 139 MEQ/L (136-145)
[2018-11-07] MEDS: ENOXAPARIN 40 MG/0.4 ML SYRINGE (J1650) SC SCH (09:00)
[2018-11-07] MEDS: GABAPENTIN 100 MG CAP PO SCH (09:39)
[2018-11-07] MEDS: IMMUNE GLOBULIN 10% 20 GM in APPROPRIATE DILUENT 1 EA IV SCH (09:45)
[2018-11-07] MEDS: IMMUNE GLOBULIN 10% 10 GM in APPROPRIATE DILUENT 1 EA IV SCH (11:48)
--- NOTE | 2018-11-07 13:15 | DSES ---
DATE OF ADMISSION: 11/03/2018 DATE OF DISCHARGE: 11/07/2018 CONSULTANTS: Dr. Marylou Bar from neurology. PROCEDURE: IVIG infusions times 5 days. 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 HOSPITAL COURSE: This is a 58-year-old female who presented to the emergency department from Dr. Bar's office on 11/03/2018. She was sent over because of progressive weakness and suspicion for Guillain-[place]. She had progressive numbness ascending up to her thighs and into her chest. She was unable to walk without holding onto something and had lost about 7 pounds because of nausea and a decreased appetite. She denied any dysphagia or shortness of breath. The patient was admitted and received 5 days of 30 mg IVIG. She was noted to make some improvement in her muscle strength and in the numbness. She cleared physical and occupational therapy on 11/07/2018 and was deemed safe for discharge. SUBJECTIVE: The patient was seen at bedside. She has no new complaints. She is feeling stronger and continues to have some paresthesias and anesthesias; however, her feet feel less heavy. She denies any trouble breathing or dysphagia. She denies any fevers, chills, nausea, vomiting, diarrhea or wheezing. OBJECTIVE: Vital Signs: Temperature 97.1, pulse 72 and regular, respiratory rate 16, blood pressure 113/52, and 97% on room air. General: Pleasant middle-aged female who is awake, alert and oriented in no acute distress. HEENT: Mucous membranes are moist. Extraocular eye movements are intact. Pupils are equal, round and reactive to light and accommodation. Neck: No jugular venous distention (JVD). Heart: Regular rate and rhythm. No murmurs, gallops or rubs. Lungs: Clear to auscultation bilaterally. No wheezes, rhonchi or rales. Abdomen: Normoactive bowel sounds. No pain to palpation in all four quadrants. Extremities: No clubbing, cyanosis or edema bilaterally. Neurologic: Cranial nerves II-XII grossly intact. The patient has 5/5 muscle strength in all four extremities. She is areflexic and has positive Babinski signs bilaterally. She has some sensory deficits, she is not able to tell sharp from dull. She can tell when someone is touching her though because it produces a "prickly type feeling". LABORATORY DATA: CBC: WBC 2.9, hemoglobin 10.9, hematocrit 34.1, platelets 111. Chemistry: Sodium 139, potassium 3.7, chloride 108, carbon dioxide 25, BUN 15, creatinine 0.60, fasting glucose 87, and calcium 8.9. CSF: WBCs were 12. CSF mononuclear percentage was 100. CSF glucose was 60. CSF total protein was 122. 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 PLAN: 1. 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 Today is her final day of IVIG 30 grams, she has received a total of 5 days. Her vital capacity measurements did not change. She is status post lumbar puncture with interventional radiology and her CSF studies are consistent with Guillain-[place]. She has passed physical and occupational therapy. She will follow up with Dr. Bar outpatient in the next week. DISCHARGE MEDICATIONS: None. DISPOSITION: Stable. DIET: As tolerated. ACTIVITY: As tolerated. FOLLOWUP: With Dr. Watters within the next 1-[address] Bar within the next week. Greater than 30 minutes was spent on discharge. My faculty preceptor for this patient encounter was physically present during the encounter and was fully available. All aspects of the patient interview, examination, medical decision making process, and medical care plan development were reviewed and approved by the faculty preceptor. The faculty preceptor is aware and concurs with the plan as stated in the body of this note and will attest to such by his/her co-signature. edited: 11/08/2018 0732 padmini EASTMAN
[2018-11-07] MEDS ORDERED: TRAZO50TA PO (14:12)
[2018-11-07] MEDS ORDERED: GABA-1171 PO (14:12)
== END 2018-11-07 14:52 | disposition home or self-care (01) | DRG 49 ==
LOC: M ED 14:55 → M ED INP 15:39 → M MS4PR 17:51
PROVIDERS: ADMIT Internal Medicine; ATTEND Internal Medicine
PROC: 009U3ZX Drainage of Spinal Canal, Percutaneous Approach, Diagnostic (ICD-10-PCS; principal; 2018-11-06)
DX: G61.0 Guillain-Barre syndrome (principal); Z87.891 Personal history of nicotine dependence

== ENCOUNTER 2018-11-08 13:01 | Outpatient (RCR) | payer BC ==
[~2018-11-08 13:01] MED LIST changes: +GABA-1171 PO; +TRAZO50TA PO
== END 2018-11-09 ==
LOC: M PT 13:01
PROVIDERS: ATTEND Internal Medicine
DX: Z51.89 Encounter for other specified aftercare (principal); G61.0 Guillain-Barre syndrome; R26.89 Other abnormalities of gait and mobility

== ENCOUNTER → 2018-11-23 | Outpatient (REF) | payer BC ==
[2018-11-23 16:37] LABS: TOTAL PROTEIN 8.1 GM/DL (6.4-8.2)
[2018-11-23 16:47] LABS: HEMOGLOBIN A1c 5.5 %
[2018-11-23 16:55] LABS: VITAMIN B12 LEVEL 589 PG/ML (247-911)
[2018-11-23 16:56] LABS: FOLATE 11.9 NG/ML (>5.4)
[2018-11-28 15:22] LABS: ALBUMIN 3.89 GM/DL (3.29-5.55); ALPHA-1-GLOBULIN % 4.3 % (2.9-4.9); ALPHA-1-GLOBULINS 0.35 GM/DL (0.17-0.41); ALPHA-2-GLOBULINS 0.84 GM/DL (0.42-0.99); ALPHA-2-GLOBULINS % 10.4 % (7.1-11.8); BETA-1-GLOBULINS 0.41 GM/DL (0.28-0.60); BETA-2-GLOBULINS 0.35 GM/DL (0.19-0.55); BETA-2-GLOBULINS % 4.3 % (3.2-6.5); GAMMA GLOBULINS 2.27 GM/DL (0.65-1.58)
[2018-11-29 08:27] LABS: VITAMIN E(ALPHA TOCOPHEROL) 9.6 mg/L (7.0-25.1); VITAMIN E(GAMMA TOCOPHEROL) 2.6 mg/L (0.5-5.5)
[2018-11-29 11:22] LABS: CERULOPLASMIN 24.1 mg/dL (19.0-39.0); VITAMIN B1 LEVEL WHOLE BLOOD 104.4 nmol/L (66.5-200.0); VITAMIN B6,PYRIDOXAL PHOSPHATE 4.8 ug/L (2.0-32.8)
== END ==
LOC: M LABNEURO 12:54
PROVIDERS: ATTEND Psychiatry & Neurology Neurology
DX: G62.9 Polyneuropathy, unspecified (principal)

== ENCOUNTER 2018-12-01 13:00 | Outpatient (RCR) | payer BC | END 2018-12-10 | LOC: M PT 13:00 | PROVIDERS: ATTEND Internal Medicine | DX: G61.0 Guillain-Barre syndrome (principal); R26.89 Other abnormalities of gait and mobility ==

== ENCOUNTER → 2019-02-15 | Outpatient (CLI) | payer BC ==
[~2019-02-15] MED LIST changes: +TRAZ1TAB10 PO; -TRAZO50TA PO
[2019-02-15 06:54] LABS: BASO % 0.6 % (0.0-1.0); EOS # 0.1 10^3/uL (0.0-0.50); EOS % 1.3 % (0.0-3.0); HEMATOCRIT 41.9 % (36.0-47.0); HEMOGLOBIN 13.3 g/dl (12.0-15.5); LYMPH # 1.7 10^3/uL (1.5-4.5); LYMPH % 23.3 % (24.0-44.0); MEAN CORPUSCULAR HEMOGLOBIN 29.5 pg (27.0-33.0); MEAN CORPUSCULAR HGB CONC 31.7 g/dl (32.0-36.5); MEAN CORPUSCULAR VOLUME 92.9 fl (80.0-96.0); MONO # 0.5 10^3/uL (0.0-0.8); MONO % 6.9 % (0.0-5.0); NEUTROPHILS # 4.8 10^3/uL (1.8-7.7); NEUTROPHILS % 67.6 % (36.0-66.0); PLATELET COUNT, AUTOMATED 143 10^3/uL (150-450); RED BLOOD COUNT 4.51 10^6/uL (4.00-5.40); WHITE BLOOD COUNT 7.1 10^3/uL (4.0-10.0)
[2019-02-15 07:31] LABS: ALBUMIN 3.9 GM/DL (3.2-5.2); ALT/SGPT 23 U/L (12-78); BILIRUBIN,TOTAL 0.5 MG/DL (0.2-1.0); BLOOD UREA NITROGEN 15 MG/DL (7-18); CALCIUM LEVEL 9.2 MG/DL (8.5-10.1); CARBON DIOXIDE LEVEL 27 MEQ/L (21-32); CHLORIDE LEVEL 108 MEQ/L (98-107); CHOLESTEROL LEVEL 224 MG/DL (<200); CHOLESTEROL RISK RATIO 3.111 (<5); CREATININE FOR GFR 0.72 MG/DL (0.55-1.30); FREE T4 1.15 NG/DL (0.76-1.46); GLOMERULAR FILTRATION RATE > 60.0 (>51); GLUCOSE, FASTING 88 MG/DL (70-100); HDL CHOLESTEROL 72 MG/DL (>40); LDL CHOLESTEROL 138 MG/DL (<100); NON-HDL-C 152 MG/DL; POTASSIUM SERUM 4.2 MEQ/L (3.5-5.1); SODIUM LEVEL 141 MEQ/L (136-145); THYROID STIMULATING HORMONE 0.774 uIU/ML (0.358-3.740); TOTAL PROTEIN 7.5 GM/DL (6.4-8.2); TRIGLYCERIDES LEVEL 70 MG/DL (<150)
== END ==
LOC: M LAB 06:20
PROVIDERS: ATTEND Family Medicine
DX: Z13.0 Encounter for screening for diseases of the blood and blood-forming organs and certain disorders involving the immune mechanism (principal); Z13.29 Encounter for screening for other suspected endocrine disorder; Z13.220 Encounter for screening for lipoid disorders

== ENCOUNTER → 2019-02-26 | Outpatient (CLI) | payer BC ==
[2019-02-26 07:16] LABS: BASO % 0.6 % (0.0-1.0); EOS # 0.1 10^3/uL (0.0-0.50); EOS % 1.3 % (0.0-3.0); HEMATOCRIT 42.4 % (36.0-47.0); HEMOGLOBIN 13.6 g/dl (12.0-15.5); LYMPH # 1.6 10^3/uL (1.5-4.5); LYMPH % 25.5 % (24.0-44.0); MEAN CORPUSCULAR HEMOGLOBIN 29.5 pg (27.0-33.0); MEAN CORPUSCULAR HGB CONC 32.1 g/dl (32.0-36.5); MONO # 0.4 10^3/uL (0.0-0.8); MONO % 6.4 % (0.0-5.0); NEUTROPHILS # 4.1 10^3/uL (1.8-7.7); NEUTROPHILS % 65.9 % (36.0-66.0); PLATELET COUNT, AUTOMATED 152 10^3/uL (150-450); RED BLOOD COUNT 4.61 10^6/uL (4.00-5.40); WHITE BLOOD COUNT 6.2 10^3/uL (4.0-10.0)
== END ==
LOC: M LAB 06:21
PROVIDERS: ATTEND Family Medicine
DX: D69.6 Thrombocytopenia, unspecified (principal)

== ENCOUNTER → 2019-05-18 | Outpatient (CLI) | payer BC ==
--- NOTE | 2019-05-18 09:27 | REPMRS ---
Patient History The patient states she has not had a clinical breast exam in over a year. Family history of breast cancer at age 70 in maternal aunt. Benign stereotactic core biopsy of the left breast, 2008. No Hormone Replacement Therapy 3D TOMOSYNTHESIS WAS PERFORMED. The [facility] lifetime risk for breast cancer is 9.3%. Digital Woman Screen Mammo: May 18, 2019 - Exam #: [id number] Bilateral CC and MLO view(s) were taken. Technologist: Addie Wellington, Technologist Prior study comparison: February 14, 2018, digital woman screen mammo performed at [facility]. February 21, 2017, digital woman screen mammo performed at [facility]. FINDINGS: The breast tissue is heterogeneously dense. This may lower the sensitivity of mammography. There has been no change in the appearance of the mammogram from the prior studies. There is a moderate amount of residual fibroglandular tissue which is fairly symmetric. There is no interval development of dominant mass, areas of architectural distortion, or clustered microcalcification typical of malignancy. Assessment: BI-RADS/ACR category 1 mammogram. Negative Mammogram. Recommendation Routine screening mammogram in 1 year (for women over age 40). This mammogram was interpreted with the aid of an FDA-approved computer-aided dectection system. Electronically Signed By: Pete Epperson MD 05/18/19 0977
== END ==
LOC: M WHC 07:40
PROVIDERS: ATTEND Family Medicine
DX: Z12.31 Encounter for screening mammogram for malignant neoplasm of breast (principal); Z80.3 Family history of malignant neoplasm of breast

== ENCOUNTER → 2020-02-25 | Outpatient (CLI) | payer OTHER ==
[2020-02-25 09:13] LABS: BASO # 0.1 10^3/uL (0.0-0.2); BASO % 0.7 % (0.0-1.0); EOS # 0.1 10^3/uL (0.0-0.5); HEMOGLOBIN 13.6 g/dl (12.0-15.5); LYMPH # 1.7 10^3/uL (1.5-5.0); LYMPH % 23.2 % (24.0-44.0); MEAN CORPUSCULAR HEMOGLOBIN 28.8 pg (27.0-33.0); MEAN CORPUSCULAR HGB CONC 31.6 g/dl (32.0-36.5); MEAN CORPUSCULAR VOLUME 91.1 fl (80.0-96.0); MONO # 0.4 10^3/uL (0.0-0.8); MONO % 5.7 % (0.0-5.0); NEUTROPHILS # 4.9 10^3/uL (1.5-8.5); PLATELET COUNT, AUTOMATED 153 10^3/uL (150-450); RED BLOOD COUNT 4.72 10^6/uL (4.00-5.40); WHITE BLOOD COUNT 7.2 10^3/uL (4.0-10.0)
[2020-02-25 09:48] LABS: ALBUMIN 3.9 GM/DL (3.2-5.2); ALT/SGPT 22 U/L (12-78); BILIRUBIN,TOTAL 0.9 MG/DL (0.2-1.0); BLOOD UREA NITROGEN 12 MG/DL (7-18); CALCIUM LEVEL 9.1 MG/DL (8.5-10.1); CARBON DIOXIDE LEVEL 27 MEQ/L (21-32); CHLORIDE LEVEL 108 MEQ/L (98-107); CHOLESTEROL LEVEL 220 MG/DL (<200); CHOLESTEROL RISK RATIO 3.098 (<5); CREATININE FOR GFR 0.79 MG/DL (0.55-1.30); FREE T4 1.21 NG/DL (0.76-1.46); GLOMERULAR FILTRATION RATE > 60.0 (>51); GLUCOSE, FASTING 99 MG/DL (70-100); HDL CHOLESTEROL 71 MG/DL (>40); LDL CHOLESTEROL 127 MG/DL (<100); NON-HDL-C 149 MG/DL; POTASSIUM SERUM 4.2 MEQ/L (3.5-5.1); SODIUM LEVEL 142 MEQ/L (136-145); TOTAL PROTEIN 7.6 GM/DL (6.4-8.2); TRIGLYCERIDES LEVEL 110 MG/DL (<150)
[2020-02-25 10:31] LABS: VITAMIN B12 LEVEL > 2000 PG/ML (247-911)
== END ==
LOC: M LAB 08:43
PROVIDERS: ATTEND Family Medicine
DX: Z13.220 Encounter for screening for lipoid disorders (principal); Z13.0 Encounter for screening for diseases of the blood and blood-forming organs and certain disorders involving the immune mechanism; R20.2 Paresthesia of skin

== ENCOUNTER → 2020-05-21 | Outpatient (CLI) | payer OTHER ==
--- NOTE | 2020-05-21 13:09 | REPMRS ---
Patient History The patient states she has not had a clinical breast exam in over a year. Family history of breast cancer at age 70 in maternal aunt. Benign stereotactic core biopsy of the left breast, 2008. No Hormone Replacement Therapy 3D TOMOSYNTHESIS WAS PERFORMED. [facility] lifetime [facility] for breast cancer is 9.0%. DELMA [place]. Digital Woman Screen Mammo: May 21, 2020 - Exam #: [id number] Bilateral CC and MLO view(s) were taken. Technologist: Dasia Green, Technologist Prior study comparison: May 18, 2019, bilateral digital woman screen mammo performed at [facility]. February 14, 2018, digital woman screen mammo performed at [facility]. FINDINGS: The breast tissue is heterogeneously dense. This may lower the sensitivity of mammography. There has been no change in the appearance of the mammogram from the prior studies. There is a moderate amount of residual fibroglandular tissue which is fairly symmetric. There is no interval development of dominant mass, areas of architectural distortion, or clustered microcalcification typical of malignancy. Assessment: BI-RADS/ACR category 1 mammogram. Negative Mammogram. Recommendation Routine screening mammogram in 1 year (for women over age 40). This mammogram was interpreted with the aid of an FDA-approved computer-aided dectection system. Electronically Signed By: Pete Epperson MD 05/21/20 9006
== END ==
LOC: M WHC 11:52
PROVIDERS: ATTEND Family Medicine
DX: Z12.31 Encounter for screening mammogram for malignant neoplasm of breast (principal)

== ENCOUNTER → 2021-02-17 | Outpatient (REF) | payer OTHER ==
[2021-02-17 14:14] LABS: BASO % 0.5 % (0.0-1.0); EOS # 0.1 10^3/uL (0.0-0.5); EOS % 1.4 % (0.0-3.0); HEMATOCRIT 39.8 % (36.0-47.0); HEMOGLOBIN 12.1 g/dl (12.0-15.5); LYMPH # 1.5 10^3/uL (1.5-5.0); LYMPH % 22.3 % (24.0-44.0); MEAN CORPUSCULAR HEMOGLOBIN 28.2 pg (27.0-33.0); MEAN CORPUSCULAR HGB CONC 30.4 g/dl (32.0-36.5); MEAN CORPUSCULAR VOLUME 92.8 fl (80.0-96.0); MONO # 0.4 10^3/uL (0.0-0.8); MONO % 5.9 % (2.0-8.0); NEUTROPHILS # 4.5 10^3/uL (1.5-8.5); NEUTROPHILS % 69.4 % (36.0-66.0); PLATELET COUNT, AUTOMATED 121 10^3/uL (150-450); RED BLOOD COUNT 4.29 10^6/uL (4.00-5.40); WHITE BLOOD COUNT 6.5 10^3/uL (4.0-10.0)
[2021-02-17 14:25] LABS: ALBUMIN 3.8 GM/DL (3.2-5.2); ALT/SGPT 15 U/L (12-78); BILIRUBIN,TOTAL 0.7 MG/DL (0.2-1.0); BLOOD UREA NITROGEN 13 MG/DL (7-18); CARBON DIOXIDE LEVEL 29 MEQ/L (21-32); CHLORIDE LEVEL 110 MEQ/L (98-107); CHOLESTEROL LEVEL 222 MG/DL (<200); CHOLESTEROL RISK RATIO 3.171 (<5); CREATININE FOR GFR 0.65 MG/DL (0.55-1.30); GLOMERULAR FILTRATION RATE > 60.0 (>45); GLUCOSE, FASTING 93 MG/DL (70-100); HDL CHOLESTEROL 70 MG/DL (>40); LDL CHOLESTEROL 134 MG/DL (<100); NON-HDL-C 152 MG/DL; POTASSIUM SERUM 4.3 MEQ/L (3.5-5.1); SODIUM LEVEL 142 MEQ/L (136-145); TOTAL PROTEIN 7.1 GM/DL (6.4-8.2); TRIGLYCERIDES LEVEL 89 MG/DL (<150)
== END ==
LOC: M PLALAB 13:00
PROVIDERS: ATTEND Family Medicine
DX: Z13.29 Encounter for screening for other suspected endocrine disorder (principal); Z13.0 Encounter for screening for diseases of the blood and blood-forming organs and certain disorders involving the immune mechanism; Z13.220 Encounter for screening for lipoid disorders

== ENCOUNTER → 2021-05-20 | Outpatient (CLI) | payer OTHER ==
--- NOTE | 2021-05-20 11:45 | REPMRS ---
Patient History The patient states she has not had a clinical breast exam in over a year. Family history of breast cancer at age 70 in maternal aunt. Benign stereotactic core biopsy of the left breast, 2009. No Hormone Replacement Therapy Patient states no breast complaints today. Patient has signed MRS History Sheet. Digital Woman Screen Mammo: May 20, 2021 - Exam #: [id number] Bilateral CC and MLO view(s) were taken. Technologist: Marii Coughlin, Technologist Prior study comparison: May 21, 2020, bilateral digital woman screen mammo performed at [facility]. May 18, 2019, bilateral digital woman screen mammo performed at [facility]. FINDINGS: The breast tissue is heterogeneously dense. This may lower the sensitivity of mammography. Screening. Digital screening (2D) mammography was performed bilaterally in the CC and MLO projections. Additionally, breast tomosynthesis (3D mammography) was performed bilaterally in the CC and MLO projections. Todays exam was compared to the prior exam/exams. By history, the patient has no complaints of a palpable breast abnormality or other significant breast complaints. The breasts are unchanged in size and shape.Once again, dense heterogenous fibroglandular elements are seen bilaterally in a stable appearing pattern but to such a degree that the sensitivity of the mammogram in detecting cancer is decreased. There are no antolin-soft tissue densities or spiculated masses. There is no internal architectural distortion.Once again, stable benign appearing calcifications are seen. There are no suspicious antolin-calcific clusters. Skin thickening or nipple retraction is not present. IMPRESSION: BI-RADS Category 2- Benign Findings. There is no evidence of malignant alteration of the breasts. Followup examination recommended in one year. The [employer] volumetric breast density category is C, the breasts are heterogenously dense which may obscure small masses. This mammogram was read with the assistance of [employer],an FDA approved computer aided detection system for mammography. The lifetime Tyrer-Cuzick score is 8.7 % Negative x-ray reports should not delay surgical consultation if a dominant or clinically suspicious mass is present. Not all breast cancers can be identified by mammography. Therefore, we recommend that you continue to perform regular breast self-examination and physical examination and then promptly contact your physician of any concerns or changes. Adenosis and dense breasts may obscure an underlying neoplasm. Assessment: BI-RADS/ACR category 2 mammogram. Benign Findings. Recommendation Routine screening mammogram of both breasts in 1 year. Electronically Signed By: Cb Norton DO 05/20/21 1142
== END ==
LOC: M WHC 10:21
PROVIDERS: ATTEND Family Medicine
DX: Z12.31 Encounter for screening mammogram for malignant neoplasm of breast (principal)

== ENCOUNTER → 2022-02-18 | Outpatient (CLI) | payer OTHER ==
[2022-02-18 12:58] LABS: BASO # 0.1 10^3/uL (0.0-0.2); BASO % 0.6 % (0.0-1.0); EOS # 0.1 10^3/uL (0.0-0.5); EOS % 1.1 % (0.0-3.0); HEMATOCRIT 43.3 % (36.0-47.0); HEMOGLOBIN 13.6 g/dl (12.0-15.5); LYMPH # 1.8 10^3/uL (1.5-5.0); LYMPH % 22.3 % (24.0-44.0); MEAN CORPUSCULAR HEMOGLOBIN 28.6 pg (27.0-33.0); MEAN CORPUSCULAR HGB CONC 31.4 g/dl (32.0-36.5); MONO # 0.4 10^3/uL (0.0-0.8); MONO % 4.7 % (2.0-8.0); NEUTROPHILS # 5.7 10^3/uL (1.5-8.5); NEUTROPHILS % 70.9 % (36.0-66.0); PLATELET COUNT, AUTOMATED 158 10^3/uL (150-450); RED BLOOD COUNT 4.76 10^6/uL (4.00-5.40); WHITE BLOOD COUNT 8.1 10^3/uL (4.0-10.0)
[2022-02-18 13:29] LABS: ALBUMIN 4.1 GM/DL (3.2-5.2); ALT/SGPT 17 U/L (12-78); BILIRUBIN,TOTAL 0.7 MG/DL (0.2-1.0); BLOOD UREA NITROGEN 12 MG/DL (7-18); CALCIUM LEVEL 9.4 MG/DL (8.8-10.2); CARBON DIOXIDE LEVEL 28 MEQ/L (21-32); CHLORIDE LEVEL 107 MEQ/L (98-107); CHOLESTEROL LEVEL 236 MG/DL (<200); CHOLESTEROL RISK RATIO 3.371 (<5); CREATININE FOR GFR 0.88 MG/DL (0.55-1.30); FREE T4 1.17 NG/DL (0.76-1.46); GLOMERULAR FILTRATION RATE > 60.0 (>45); GLUCOSE, FASTING 94 MG/DL (70-100); HDL CHOLESTEROL 70 MG/DL (>40); LDL CHOLESTEROL 142 MG/DL (<100); NON-HDL-C 166 MG/DL; POTASSIUM SERUM 4.7 MEQ/L (3.5-5.1); SODIUM LEVEL 139 MEQ/L (136-145); THYROID STIMULATING HORMONE 0.644 uIU/ML (0.358-3.740); TOTAL PROTEIN 7.8 GM/DL (6.4-8.2); TRIGLYCERIDES LEVEL 120 MG/DL (<150)
== END ==
LOC: M PLALAB 09:17
PROVIDERS: ATTEND Family Medicine
DX: Z13.0 Encounter for screening for diseases of the blood and blood-forming organs and certain disorders involving the immune mechanism (principal); Z13.29 Encounter for screening for other suspected endocrine disorder; Z13.220 Encounter for screening for lipoid disorders

== ENCOUNTER → 2022-04-06 | Outpatient (CLI) | payer OTHER | LOC: M WUC 11:12 | PROVIDERS: ATTEND Student in an Organized Health Care Education/Training Program | DX: M54.50 Low back pain, unspecified (principal) ==

== ENCOUNTER → 2022-06-15 | Outpatient (CLI) | payer OTHER | LOC: M WHC 14:19 | PROVIDERS: ATTEND Family Medicine | DX: Z12.31 Encounter for screening mammogram for malignant neoplasm of breast (principal); Z13.820 Encounter for screening for osteoporosis; M81.0 Age-related osteoporosis without current pathological fracture ==

== ENCOUNTER → 2022-10-20 | Outpatient (CLI) | payer OTHER | LOC: M PLAIMG 14:34 | PROVIDERS: ATTEND Physician Assistant | DX: M46.1 Sacroiliitis, not elsewhere classified (principal) ==

== ENCOUNTER → 2023-02-23 | Outpatient (CLI) | payer OTHER ==
[2023-02-23 14:22] LABS: BASO % 0.6 % (0.0-1.0); EOS # 0.1 10^3/uL (0.0-0.5); EOS % 1.3 % (0.0-3.0); HEMATOCRIT 44.2 % (36.0-47.0); HEMOGLOBIN 13.6 g/dl (12.0-15.5); LYMPH # 1.9 10^3/uL (1.5-5.0); LYMPH % 27.4 % (24.0-44.0); MEAN CORPUSCULAR HEMOGLOBIN 28.3 pg (27.0-33.0); MEAN CORPUSCULAR HGB CONC 30.8 g/dl (32.0-36.5); MEAN CORPUSCULAR VOLUME 92.1 fl (80.0-96.0); MONO # 0.5 10^3/uL (0.0-0.8); MONO % 6.6 % (2.0-8.0); NEUTROPHILS # 4.4 10^3/uL (1.5-8.5); PLATELET COUNT, AUTOMATED 153 10^3/uL (150-450); WHITE BLOOD COUNT 6.9 10^3/uL (4.0-10.0)
[2023-02-23 14:51] LABS: ALBUMIN 4.1 G/DL (3.2-5.2); ALKALINE PHOSPHATASE 112 U/L (46-116); ALT/SGPT 12 U/L (7.0-40); AST/SGOT 9 U/L (<34); BILIRUBIN,TOTAL 0.8 MG/DL (0.3-1.2); BLOOD UREA NITROGEN 16 MG/DL (9-23); CALCIUM LEVEL 9.8 MG/DL (8.3-10.6); CARBON DIOXIDE LEVEL 26 MMOL/L (20-31); CHLORIDE LEVEL 107 MMOL/L (98-107); CHOLESTEROL LEVEL 231 MG/DL (<200); CREATININE FOR GFR 0.78 MG/DL (0.55-1.30); GLOMERULAR FILTRATION RATE > 60.0 (>45); GLUCOSE, FASTING 98 MG/DL (74-106); HDL CHOLESTEROL 74.4 MG/DL (>40); LDL CHOLESTEROL 140.4 MG/DL (<100); NON-HDL-C 156.6 MG/DL; POTASSIUM SERUM 4.6 MMOL/L (3.5-5.1); SODIUM LEVEL 140 MMOL/L (136-145); THYROID STIMULATING HORMONE 0.686 uIU/ML (0.55-4.78); TOTAL PROTEIN 7.5 G/DL (5.7-8.2); TRIGLYCERIDES LEVEL 81 MG/DL (<150)
[2023-02-23 14:52] LABS: FREE T4 1.17 NG/DL (0.89-1.76)
== END ==
LOC: M PLALAB 10:49
PROVIDERS: ATTEND Family Medicine
DX: Z13.0 Encounter for screening for diseases of the blood and blood-forming organs and certain disorders involving the immune mechanism (principal); Z13.29 Encounter for screening for other suspected endocrine disorder; Z13.220 Encounter for screening for lipoid disorders

== ENCOUNTER → 2023-06-16 | Outpatient (CLI) | payer OTHER ==
[~2023-06-16] MED LIST changes: +THERTAB52 PO
== END ==
LOC: M WHC 09:38
PROVIDERS: ATTEND Family Medicine
DX: Z12.31 Encounter for screening mammogram for malignant neoplasm of breast (principal)

== ENCOUNTER → 2024-02-27 | Outpatient (CLI) | payer OTHER ==
[2024-02-27 12:48] LABS: BASO % 0.4 % (0.0-1.0); EOS # 0.1 10^3/uL (0.0-0.5); EOS % 1.3 % (0.0-3.0); HEMATOCRIT 42.3 % (36.0-47.0); HEMOGLOBIN 13.6 g/dl (12.0-15.5); LYMPH # 1.9 10^3/uL (1.5-5.0); LYMPH % 26.8 % (24.0-44.0); MEAN CORPUSCULAR HEMOGLOBIN 29.2 pg (27.0-33.0); MEAN CORPUSCULAR HGB CONC 32.2 g/dl (32.0-36.5); MEAN CORPUSCULAR VOLUME 90.8 fl (80.0-96.0); MONO # 0.4 10^3/uL (0.0-0.8); MONO % 5.6 % (2.0-8.0); NEUTROPHILS # 4.7 10^3/uL (1.5-8.5); NEUTROPHILS % 65.6 % (36.0-66.0); PLATELET COUNT, AUTOMATED 161 10^3/uL (150-450); RED BLOOD COUNT 4.66 10^6/uL (4.00-5.40); WHITE BLOOD COUNT 7.2 10^3/uL (4.0-10.0)
[2024-02-27 13:27] LABS: ALBUMIN 4.2 G/DL (3.2-5.2); ALKALINE PHOSPHATASE 123 U/L (46-116); ALT/SGPT 14 U/L (7.0-40); AST/SGOT 12 U/L (<34); BILIRUBIN,TOTAL 0.8 MG/DL (0.3-1.2); BLOOD UREA NITROGEN 11 MG/DL (9-23); CALCIUM LEVEL 9.8 MG/DL (8.3-10.6); CARBON DIOXIDE LEVEL 29 MMOL/L (20-31); CHLORIDE LEVEL 105 MMOL/L (98-107); CHOLESTEROL LEVEL 242 MG/DL (<200); CHOLESTEROL RISK RATIO 3.65 (<5); CREATININE FOR GFR 0.74 MG/DL (0.55-1.30); GLOMERULAR FILTRATION RATE > 60.0 (>45); GLUCOSE, FASTING 99 MG/DL (74-106); HDL CHOLESTEROL 66.3 MG/DL (>40); LDL CHOLESTEROL 144.5 MG/DL (<100); NON-HDL-C 175.7 MG/DL; POTASSIUM SERUM 4.3 MMOL/L (3.5-5.1); SODIUM LEVEL 138 MMOL/L (136-145); TOTAL PROTEIN 7.5 G/DL (5.7-8.2); TRIGLYCERIDES LEVEL 156 MG/DL (<150)
[2024-02-27 13:28] LABS: THYROID STIMULATING HORMONE 0.804 uIU/ML (0.55-4.78)
== END ==
LOC: M PLALAB 10:43
PROVIDERS: ATTEND Family Medicine
DX: Z13.0 Encounter for screening for diseases of the blood and blood-forming organs and certain disorders involving the immune mechanism (principal); Z13.29 Encounter for screening for other suspected endocrine disorder; Z13.220 Encounter for screening for lipoid disorders

== ENCOUNTER → 2024-06-18 | Outpatient (CLI) | payer OTHER | LOC: M WHC 10:27 | PROVIDERS: ATTEND Family Medicine | DX: Z12.31 Encounter for screening mammogram for malignant neoplasm of breast (principal); Z13.820 Encounter for screening for osteoporosis; M81.0 Age-related osteoporosis without current pathological fracture; M85.851 Other specified disorders of bone density and structure, right thigh; M85.852 Other specified disorders of bone density and structure, left thigh; M85.88 Other specified disorders of bone density and structure, other site; R92.333 Mammographic heterogeneous density, bilateral breasts ==

== ENCOUNTER → 2025-06-19 | Outpatient (CLI) | payer MEDICARE, OTHER | LOC: M WHC 09:57 | PROVIDERS: ATTEND Family Medicine | DX: Z12.31 Encounter for screening mammogram for malignant neoplasm of breast (principal); R92.333 Mammographic heterogeneous density, bilateral breasts ==